=== PATIENT | male | born 1985 | race African-American/Black ===

== ENCOUNTER 2016-10-01 23:23 | Emergency (ER) | payer MEDICAID ==
[~2016-10-01] VITALS: Ht 210.8 cm; Wt 104.0 kg
[2016-10-02] MEDS ORDERED: IBUPROFEN 600MG TABLET PO ONE (02:00)
[2016-10-02 02:45] VITALS: BP 120/66
== END 2016-10-02 02:45 | disposition home or self-care (01) ==
LOC: ER 23:23
DX: L03.011 Cellulitis of right finger (principal); R03.0 Elevated blood-pressure reading, without diagnosis of hypertension
CPT/HCPCS: 99283; Z7610

== ENCOUNTER 2017-05-11 17:46 | Emergency (ER) | payer MEDICAID | END 2017-05-11 18:58 | disposition left against medical advice (07) | LOC: ER 18:40 | DX: Z53.21 Procedure and treatment not carried out due to patient leaving prior to being seen by health care provider (principal) ==

== ENCOUNTER 2017-05-12 09:46 | Emergency (ER) | payer MEDICAID ==
[~2017-05-12] VITALS: Ht 180.3 cm; Wt 102.0 kg
[2017-05-12] MEDS ORDERED: HYDROCODONE/ACETAMINOPHEN 10/325MG TABLET PO ONE (12:30)
[2017-05-12] MEDS ORDERED: BACITRACIN ZINC OINT UDPKT TOP ONE (12:30)
[2017-05-12 12:39] LABS: BASOPHILS % 0.4 % (0.0-2.0); EOSINOPHILS % 0.6 % (0.0-5.0); HEMATOCRIT. 45.6 % (42.0-52.0); HEMOGLOBIN. 15.3 g/dL (14.0-18.0); LYMPHOCYTES % 30.8 % (20.0-50.0); MEAN CORPUSCULAR VOLUME 80.7 fL (80.0-94.0); MEAN PLATELET VOLUME 6.8 fl (7.4-10.4); MONOCYTES % 6.2 % (2.0-8.0); PLATELET 359 x1000/uL (130-400); RED BLOOD CELL COUNT 5.65 mill/uL (4.7-6.1); RED CELL DISTRIBUTION WIDTH 14.4 % (11.6-14.6)
[2017-05-12 12:48] LABS: CHLORIDE 107 mEq/L (98-107)
[2017-05-12] MEDS ORDERED: IOHEXOL-300 100 ML BOTTLE ONE (14:41)
[2017-05-12 15:50] VITALS: BP 135/81
== END 2017-05-12 15:57 | disposition home or self-care (01) ==
LOC: ER 09:46
DX: S31.131A Puncture wound of abdominal wall without foreign body, left upper quadrant without penetration into peritoneal cavity, initial encounter (principal); F12.10 Cannabis abuse, uncomplicated; F17.200 Nicotine dependence, unspecified, uncomplicated; X99.1XXA Assault by knife, initial encounter; Y93.89 Activity, other specified; Y92.89 Other specified places as the place of occurrence of the external cause; Y99.8 Other external cause status
CPT/HCPCS: 36415; 74018; 74177; 80053; 85025; 99285; Q9967; Z7610

== ENCOUNTER 2018-04-19 09:58 | Emergency (ER) | payer MEDICAID ==
[~2018-04-19] VITALS: Ht 182.9 cm; Wt 105.0 kg
[2018-04-19 10:13] VITALS: BP 161/89
[2018-04-19] MEDS ORDERED: DEXAMETHASONE 10 MG/ML VIAL IM ONE (11:15)
[2018-04-19] MEDS ORDERED: PENICILLIN G BENZATHINE 1,200,000 UNITS/2ML SYR IM ONE (11:15)
== END 2018-04-19 13:00 | disposition home or self-care (01) ==
LOC: ER 11:16
DX: J02.0 Streptococcal pharyngitis (principal)
CPT/HCPCS: 87430; 96372; 99283; J0561; J1100

== ENCOUNTER 2019-06-18 14:52 | Emergency (ER) | payer SELFPAY ==
[~2019-06-18] VITALS: Ht 182.9 cm; Wt 104.0 kg
[2019-06-18] MEDS ORDERED: METHYLPREDNISOLONE SOD SUCC 125 MG/2 ML VIAL IV ONE (16:15)
[2019-06-18] MEDS ORDERED: LIDOCAINE HCL 1% 20ML VIAL (Pyxis) INJ INFIL ONE (16:15)
[2019-06-18] MEDS ORDERED: CEFTRIAXONE SODIUM 1 G/VIAL IM ONE (16:15)
[2019-06-18 16:30] VITALS: BP 140/82
== END 2019-06-18 16:52 | disposition home or self-care (01) ==
LOC: ER 14:52
DX: J36 Peritonsillar abscess (principal); F12.10 Cannabis abuse, uncomplicated
CPT/HCPCS: 96372; 96374; 99283; J0696; J2930; J3490

== ENCOUNTER 2020-11-09 17:36 | Emergency (ER) | payer MEDICAID ==
[~2020-11-09] VITALS: Ht 182.9 cm; Wt 105.0 kg
[2020-11-09] MEDS ORDERED: DEXAMETHASONE 10 MG/ML VIAL IM ONE (19:00)
[2020-11-09] MEDS ORDERED: AMOXICILLIN/POTASSIUM CLAVULANATE 875/125MG TAB PO ONE (19:00)
[2020-11-09] MEDS ORDERED: AMOX-424 MT (19:06)
[2020-11-09 19:55] VITALS: BP 146/103
[2020-11-09] MEDS ORDERED: KETOROLAC 15MG/ML VIAL IM ONE (20:00)
== END 2020-11-09 20:00 | disposition home or self-care (01) ==
LOC: ER 17:36
DX: J02.9 Acute pharyngitis, unspecified (principal)
CPT/HCPCS: 96372; 99284; J1100; J1885

== ENCOUNTER 2023-04-26 00:26 | Emergency (ER) | payer MEDICAID ==
[~2023-04-26] VITALS: Ht 180.3 cm; Wt 109.0 kg
[~2023-04-26 00:26] MED LIST: AMOX-424 MT
[2023-04-26 00:32] VITALS: PULSE 99
[2023-04-26 00:45] VITALS: BP 145/92; RESP 18; TEMP 98.6; O2SAT 98
[2023-04-26] MEDS ORDERED: AMOX1TAB16 MT (05:38)
== END 2023-04-26 06:12 | disposition home or self-care (01) ==
LOC: ER 00:26
DX: J02.9 Acute pharyngitis, unspecified (principal)
CPT/HCPCS: 99283